=== PATIENT | female | born 1945 | race Caucasian/White ===

== ENCOUNTER 2016-04-19 13:56 | Emergency (ER) | payer MEDICARE, BC ==
[2016-04-19] MEDS ORDERED: TDaP 0.5 ML VIAL IM.VACC ONE (15:14)
== END 2016-04-19 16:26 | disposition home or self-care (01) ==
LOC: ER 13:56
DX: M25.431 Effusion, right wrist (principal); S61.501A Unspecified open wound of right wrist, initial encounter; W18.09XA Striking against other object with subsequent fall, initial encounter; Y93.89 Activity, other specified; Y92.099 Unspecified place in other non-institutional residence as the place of occurrence of the external cause; S63.501A Unspecified sprain of right wrist, initial encounter; Z79.82 Long term (current) use of aspirin; Z79.899 Other long term (current) drug therapy; Z23 Encounter for immunization
CPT/HCPCS: 90471